=== PATIENT | female | born 1965 | race African-American/Black ===

== ENCOUNTER 2018-09-28 12:17 | Inpatient (IN) | payer BC ==
[~2018-09-28] VITALS: Ht 152.4 cm; Wt 67.1 kg
[2018-09-28 12:33] VITALS: BP_SYST 143
--- NOTE | 2018-09-28 12:38 | NUR ---
Patient to ER bed 08 to gown for evaluation. Side rails up.
--- NOTE | 2018-09-28 12:41 | NUR ---
Pt AAOx4 ambulated into ED c/o dizziness, headache, nausea, chills, generalized weakness x 2 days. Pt states she had fever of 101.4 at home and took tylenol. Afebrile in ED. Pt also reports constipation x 5 days r/t IBS. +nausea, +diaphoretic. Denies vomting/diarrhea. No other injuries/complaints per pt/noted. Will continue to monitor.
--- NOTE | 2018-09-28 12:43 | NUR ---
EMILIE Lisa at bedside examining patient.
[2018-09-28] MEDS ORDERED: ONDANSETRON HCL 4 MG/2 ML VIAL IVP ONE ×2 (12:45→14:45)
[2018-09-28] MEDS ORDERED: NACL 0.9% 1,000 ML IV ONE ×3 (12:45→16:00)
[2018-09-28] MEDS ORDERED: KETOROLAC TROMETHAMINE 30 MG VIAL IVP ONE (12:45)
[2018-09-28 13:11] LABS: HEMATOCRIT 32.3 % (36-48); HEMOGLOBIN 9.7 g/dL (12.0-16.0); MEAN CORPUSCULAR HEMOGLOBIN 20 pg (27-31); MEAN CORPUSCULAR HGB CONC 30 % (32-36); MEAN CORPUSCULAR VOLUME 68 fL (79.0-98.0); PLATELET COUNT (AUTO) 449 K/uL (130-430); RED BLOOD CELL COUNT(AUTO) 4.74 MIL/uL (4.2-6.2); WHITE BLOOD COUNT (AUTO) 24.7 K/uL (4.8-10.8)
[2018-09-28 13:16] LABS: BILIRUBIN,URINE NEGATIVE (NEGATIVE); BLOOD, URINE NEGATIVE (NEGATIVE); CLARITY/URINE CLEAR (CLEAR); COLOR,URINE YELLOW (YELLOW); GLUCOSE,URINE NEGATIVE (NEGATIVE); KETONES,URINE NEGATIVE (NEGATIVE); LEUKOCYTE ESTERASE ,URINE NEGATIVE (NEGATIVE); NITRITE, URINE NEGATIVE (NEGATIVE); PH,URINE 8.5 (5.0-8.0); PROTEIN URINE NEGATIVE (NEGATIVE); UROBILINOGEN,URINE 0.2 (0.2-1.0)
[2018-09-28 13:22] LABS: CALCIUM 9.3 mg/dL (8.4-11.0); CREATININE 0.88 mg/dL (0.55-1.30); POTASSIUM 3.5 mmol/L (3.5-5.1)
[2018-09-28 13:27] LABS: ALBUMIN 3.9 g/dL (3.4-4.8); TOTAL BILIRUBIN 0.2 mg/dL (0.0-1.0)
[2018-09-28] MEDS ORDERED: PIPERACILLIN/TAZO 3.375 GM in NS 50 ML IV ONE (13:30)
[2018-09-28 13:43] LABS: BAND % (MANUAL) 5 % (0-6); LYMPHOCYTES % (MANUAL) 4 % (20-46)
[2018-09-28 13:44] LABS: BASOPHILS % (MANUAL) 0 % (0-2); EOSINOPHILS % (MANUAL) 0 % (0-7); MONOCYTES % (MANUAL) 3 % (0-11)
[2018-09-28] MEDS ORDERED: PIPERACILLIN/TAZOBACTAM 3.375 GM/VIAL (ZOSYN) IV ONE (13:57)
--- NOTE | 2018-09-28 14:09 | NUR ---
TAKEN TO RADIOLOGY VIA STRETCHER
[2018-09-28] MEDS ORDERED: MORPHINE 4 MG/ML INJ. SYRINGE IVP ONE (14:30)
--- NOTE | 2018-09-28 14:30 | NUR ---
Pt reports continuing headache. Dr. Lisa to order morphine
--- NOTE | 2018-09-28 14:33 | NUR ---
Pt requested Zofran prior to morphine administration. Dr. Lisa notified. Orders to be received.
--- NOTE | 2018-09-28 14:39 | NUR ---
Medication administered. Pt tolerated well. No adverse reactions noted.
--- NOTE | 2018-09-28 14:51 | NUR ---
Lab at bedside
--- NOTE | 2018-09-28 15:10 | NUR ---
Son of patient Poncho called for update, asked to have phone number on chart
--- NOTE | 2018-09-28 15:30 | NUR ---
Patient C/o chest uncomfortable right lower chest pain, repositioned patient and pain subsided. patientstates she feels warm & nausea. Blankets off and made Dr. Lisa aware.
[2018-09-28] MEDS ORDERED: METOCLOPRAMIDE HCL 10 MG/2 ML VIAL IVP ONE (15:45)
--- NOTE | 2018-09-28 15:56 | NUR ---
Requested room number from [facility]. Per [facility], they will call when bed is available.
--- NOTE | 2018-09-28 15:58 | NUR ---
Pt reports she takes no prescription home meds
--- NOTE | 2018-09-28 15:58 | NUR ---
Pt states she is full code
--- NOTE | 2018-09-28 16:00 | NUR ---
patient assisted to restroom via wheelchair
--- NOTE | 2018-09-28 16:15 | NUR ---
Patient will be admitted to care of Dr. Chaney. Admitted to Med surg unit. Will go to room 125B. Belongings list completed. Summary report printed. Report given at bedside to Han CHRISTOPHER.
--- NOTE | 2018-09-28 16:15 | NUR ---
Patient will be admitted to care of Dr. Chaney. Admitted to med surg unit. Will go to [id number] . Belongings list completed. Summary report printed. Report given at bedside to Han CHRISTOPHER.
--- NOTE | 2018-09-28 16:30 | NUR ---
ADMISSION NOTE Received patient from ER via shantelrstu. Patient admitted with diagnosis of Chest Pain and Sepsis of unknown etiology. Patient is awake, alert, oriented X 4. Patient oriented to hospital room, call light, toileting, pain management and safety-teach back done. Report received from endorsing nurse Kaelyn RN via beside. Bed is placed at lowest position, safety checks completed, and call light within reach.
[2018-09-28 17:15] VITALS: BP_SYST 106
[2018-09-28] MEDS ORDERED: METOCLOPRAMIDE HCL 10 MG/2 ML VIAL IVP PRN (18:00)
[2018-09-28] MEDS ORDERED: MORPHINE 4 MG/ML INJ. SYRINGE IVP PRN (18:00)
[2018-09-28] MEDS ORDERED: MORPHINE 2 MG/ML INJ. SYRINGE IVP PRN (18:00)
[2018-09-28] MEDS ORDERED: ONDANSETRON HCL 4 MG/2 ML VIAL IVP PRN (18:00)
[2018-09-28] MEDS: NACL 0.9% 1,000 ML IV SCH (18:35)
[2018-09-28] MEDS: PIPERACILLIN/TAZO 3.375/DEX-IS 50 ML IV SCH (18:35)
--- NOTE | 2018-09-28 19:05 | NUR ---
Closing Note Patient is AOx4 in bed with son at bedside. They are both speaking to each other. Patient is not presenting any signs of acute distress. Safety precautions in place and bed is placed at the lowest position. Provided plan of care via sbar to endorsing nurse at bedside.
--- NOTE | 2018-09-28 19:35 | NUR ---
ROUNDS PATIENT RESTING COMFORTABLY IN BED, VITALS STABLE, DENIES ANY PAIN AND DISCOMFORT AT THIS TIME. ASSESSMENT DONE AND DOCUMENTED. SEE FLOWSHEET. NEEDS ATTENDED TO. SAFETY AND FALL PRECAUTION MEASURES IN PLACED. BED IN LOW AND LOCKED POSITION. CALL LIGHT PLACED WITHIN REACH.
[2018-09-28 20:00] VITALS: BP_SYST 149
[2018-09-28] MEDS: ACETAMINOPHEN 325 MG TABLET PO PRN (20:37)
--- NOTE | 2018-09-28 21:13 | NUR ---
MEDICATION DUE MEDICATIONS GIVEN SCHEDULED, TOLERATED WELL. WILL CONTINUE TO MONITOR.
--- NOTE | 2018-09-29 00:13 | NUR ---
PATIENT RESTING: Patient resting quietly. No acute distress noted. Vital signs within normal range.
[2018-09-29] MEDS: PIPERACILLIN/TAZO 3.375/DEX-IS 50 ML IV SCH ×4 (00:24→18:19)
[2018-09-29] MEDS: ACETAMINOPHEN 325 MG TABLET PO PRN ×4 (02:06→20:33)
--- NOTE | 2018-09-29 02:15 | NUR ---
ROUNDS PATIENT ASLEEP, VITALS STABLE, NO PAIN AND DISCOMFORT NOTED. WILL CONTINUE TO MONITOR.
--- NOTE | 2018-09-29 04:12 | NUR ---
PATIENT RESTING: Patient resting quietly. No acute distress noted. Vital signs within normal range.
[2018-09-29 05:42] LABS: ALBUMIN 2.8 g/dL (3.4-4.8); CALCIUM 8.4 mg/dL (8.4-11.0); CREATININE 0.95 mg/dL (0.55-1.30); POTASSIUM 3.5 mmol/L (3.5-5.1); TOTAL BILIRUBIN 0.4 mg/dL (0.0-1.0)
[2018-09-29] MEDS: NACL 0.9% 1,000 ML IV SCH ×2 (05:44→18:14)
[2018-09-29 06:05] VITALS: BP_SYST 94
[2018-09-29 06:10] LABS: BASOPHILS # (AUTO) 0.1 K/uL (0.0-0.2); BASOPHILS % (AUTO) 0.4 % (0.0-2.0); HEMATOCRIT 25.6 % (36-48); HEMOGLOBIN 7.7 g/dL (12.0-16.0); LYMPHOCYTES # (AUTO) 0.7 K/uL (1.0-5.5); LYMPHOCYTES % (AUTO) 2.8 % (20.5-51.5); MEAN CORPUSCULAR HEMOGLOBIN 21 pg (27-31); MEAN CORPUSCULAR HGB CONC 30 % (32-36); MEAN CORPUSCULAR VOLUME 69 fL (79.0-98.0); MONOCYTES # (AUTO) 0.5 K/uL (0.0-1.0); MONOCYTES % (AUTO) 2.2 % (1.7-9.3); NEUTROPHILS # (AUTO) 21.9 K/uL (1.8-7.7); PLATELET COUNT (AUTO) 343 K/uL (130-430); RED BLOOD CELL COUNT(AUTO) 3.73 MIL/uL (4.2-6.2); RED CELL DISTRIBUTION WIDTH 17.4 % (9.0-15.0); WHITE BLOOD COUNT (AUTO) 23.2 K/uL (4.8-10.8)
--- NOTE | 2018-09-29 06:32 | NUR ---
CLOSING NOTES PATIENT AWAKE, VITALS STABLE, DENIES ANY PAIN AND DISCOMFORT AT THIS TIME. ALL NEEDS ATTENDED TO. SAFETY MEASURES MAINTAINED. CALL LIGHT PLACED WITHIN REACH.
[2018-09-29 07:08] LABS: NEUTROPHILS % (AUTO) 94.6 % (40.0-70.0)
[2018-09-29 08:00] VITALS: BP_SYST 108
--- NOTE | 2018-09-29 08:00 | NUR ---
initial notes rec patient awake laert with hob elevated . ivf infusing well on the l ac. no infiltration noted. resp easy and unlabored. no sob noted.call light within reached and knows when to call for assistance. bed to the lowest position.
--- NOTE | 2018-09-29 10:30 | NUR ---
rounds seen by dr santos and requested for dr helton to see patient. awaiting for him grant see patient.
--- NOTE | 2018-09-29 10:45 | NUR ---
CONSULTATION PAGED/CALLED Reason for Consultation: SEPSIS Person Who was Notified: SPOKE WITH DANIA FROM OFFICE. Consulting Physician: Entertainment Centre Manager Specialty: ID Ordering Physician:
[2018-09-29 11:43] VITALS: BP_SYST 96
--- NOTE | 2018-09-29 13:00 | NUR ---
rounds iv infiltrated and restarted by aurora rn. due meds given.
[2018-09-29 15:45] VITALS: BP_SYST 94
--- NOTE | 2018-09-29 16:00 | NUR ---
rounds family came to visit patient. no sob noted.
--- NOTE | 2018-09-29 17:00 | NUR ---
rounds seen by dr vazquez at bedside . pt took a shower and patti well. no sob noted.
--- NOTE | 2018-09-29 18:45 | NUR ---
closing notes restin comfortably. no sob noted. bed to the lowest position and side rails up and locked. call light within reached.
--- NOTE | 2018-09-29 19:20 | NUR ---
Opening notes Pt alert, awake, resting in bed, no s/s distress noted. Bed low, locked, siderails x2 elevated. Call light/items within easy reach. To monitor.
[2018-09-29 20:00] VITALS: BP_SYST 111
--- NOTE | 2018-09-29 22:05 | NUR ---
Rounds Pt asleep, no s/s distress noted. Call light within reach. Safety measures in place. To monitor.
[2018-09-30] MEDS: PIPERACILLIN/TAZO 3.375/DEX-IS 50 ML IV SCH ×5 (00:20→23:15)
--- NOTE | 2018-09-30 00:35 | NUR ---
Rounds Pt asleep, easily arousable. No s/s distress noted. VSS. Call light within reach. To monitor.
--- NOTE | 2018-09-30 02:02 | NUR ---
Rounds Pt alert, awake, gown changed per pt request. Pt states she woke up in a sweat. IVF infusing at ordered rate, IV site patent. To monitor.
[2018-09-30] MEDS: NACL 0.9% 1,000 ML IV SCH ×3 (04:57→21:22)
[2018-09-30 05:32] VITALS: BP_SYST 108
--- NOTE | 2018-09-30 06:30 | NUR ---
Closing notes Pt asleep, easily arousable. Pt c/o headache medicated with Tylenol 650mg PO. IV antibiotic administered as ordered L. hand 22G no s/s infiltration. Call light within reach. Bed low, locked, siderails x2 elevated. To endorse to AM nurse.
[2018-09-30] MEDS: ACETAMINOPHEN 325 MG TABLET PO PRN (06:33)
[2018-09-30 06:35] LABS: BASOPHILS # (AUTO) 0.1 K/uL (0.0-0.2); BASOPHILS % (AUTO) 0.9 % (0.0-2.0); EOSINOPHILS # (AUTO) 0.1 K/uL (0.0-0.4); EOSINOPHILS % (AUTO) 0.5 % (0.0-4.0); HEMATOCRIT 25.9 % (36-48); HEMOGLOBIN 7.9 g/dL (12.0-16.0); LYMPHOCYTES # (AUTO) 1.5 K/uL (1.0-5.5); LYMPHOCYTES % (AUTO) 14.7 % (20.5-51.5); MEAN CORPUSCULAR HEMOGLOBIN 21 pg (27-31); MEAN CORPUSCULAR HGB CONC 31 % (32-36); MEAN CORPUSCULAR VOLUME 68 fL (79.0-98.0); MONOCYTES # (AUTO) 0.8 K/uL (0.0-1.0); MONOCYTES % (AUTO) 7.8 % (1.7-9.3); NEUTROPHILS # (AUTO) 7.6 K/uL (1.8-7.7); NEUTROPHILS % (AUTO) 76.1 % (40.0-70.0); PLATELET COUNT (AUTO) 310 K/uL (130-430); RED CELL DISTRIBUTION WIDTH 17.7 % (9.0-15.0); WHITE BLOOD COUNT (AUTO) 9.9 K/uL (4.8-10.8)
[2018-09-30 06:47] LABS: ALBUMIN 2.8 g/dL (3.4-4.8); CREATININE 0.8 mg/dL (0.55-1.30); POTASSIUM 3.4 mmol/L (3.5-5.1); TOTAL BILIRUBIN 0.3 mg/dL (0.0-1.0)
[2018-09-30 07:10] LABS: CALCIUM 8.5 mg/dL (8.4-11.0)
[2018-09-30 08:00] VITALS: BP_SYST 120
[2018-09-30] MEDS ORDERED: POTASSIUM CHLORIDE 20 MEQ TAB.PRT.SR PO ONE (08:00)
--- NOTE | 2018-09-30 08:00 | NUR ---
initial notes rec patient awake alert with hob elevated. ivf infusing well on the l hand. no infiltration noted. bed to the lowest position and side rails up and locked. call light within reached and knows when to call for assistance. seen by dr warren pisano at bedside and with orders. will continue to monitor patient.
[2018-09-30 08:12] LABS: TOTAL IRON BIND. CAPACITY 306 ug/dL (250-450)
--- NOTE | 2018-09-30 08:16 | NUR ---
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
[2018-09-30] MEDS: PANTOPRAZOLE SODIUM 40 MG/VIAL (PROTONIX) IVP SCH (09:34)
[2018-09-30] MEDS: traMADol HCL HCL 50 MG TABLET (ULTRAM) PO PRN ×2 (09:35→18:06)
--- NOTE | 2018-09-30 09:36 | NUR ---
CONSULTATION PAGED/CALLED Reason for Consultation: GALLSTONES Person Who was Notified: SPOKE WITH RASHAUN FROM OFFICE Consulting Physician: Pressure Tester Specialty: SURG Ordering Physician:
--- NOTE | 2018-09-30 10:00 | NUR ---
rounds iv infiltrated and will restart by chico. denies nausea and vomiting bt c/o of headache was medicated. uses the commode at bedside.
--- NOTE | 2018-09-30 10:59 | NUR ---
Case mgt: Rec'd call from mg Haro at [facility], requesting updated MD prog notes, discussed plan of care--HIDA and surgical consult w/Dr. Pierce pending--faxed MD notes, labs to [facility] fax#[phone]--CB#[phone]-- RN
--- NOTE | 2018-09-30 12:00 | NUR ---
rounds npo maintained for the hida scan test. no sob noted. call light within reached.
[2018-09-30 12:24] VITALS: BP_SYST 125
--- NOTE | 2018-09-30 14:00 | NUR ---
rounds awaiting for dr vazquez , dr ortiz and dr guallpa to see patient. atoo a shower. ambulatingthe hallway and patti well.
--- NOTE | 2018-09-30 16:00 | NUR ---
rounds dr guallpa called and stated that hida scan was negative. stated to call dr warren pisano for diet. awaiting to call back.
--- NOTE | 2018-09-30 16:01 | NUR ---
Dietitian Recommendations * Consider regular, vegetarian diet w/ Glucerna BID if/when medically appropriate (ONS provides 440 kcal/day, 20 gm protein/day) THERESA TAYLOR Please refer to Nutrition Assessment for details. Addendum: 09/30/18 at [address] Amended: Links added.
[2018-09-30 16:08] VITALS: BP_SYST 123
--- NOTE | 2018-09-30 19:00 | NUR ---
closing notes seen by dr guallpa at bedside. no osb noted. bed to the lowest position and side rails up and locked. call light within reached.
--- NOTE | 2018-09-30 19:15 | NUR ---
OPENING NOTE Bedside report received from dayshift nurse. Patient received lying in bed, watching TV. No s/s of acute distress noted. Breathing even and unlabored. Patient denies any pain at this time. IVF infusing well, IV site patent, no signs of infiltration or infection noted. Call light with patient. Bed is locked and at lowest position. Will continue to monitor.
[2018-09-30 20:00] VITALS: BP_SYST 126
--- NOTE | 2018-09-30 21:00 | NUR ---
ROUNDS Patient in bed, resting, no signs of discomfort noted. Patient denies pain. Chest rise and fall even bilaterally. IVF infusing well. Call light with patient. Will continue to monitor.
--- NOTE | 2018-09-30 23:00 | NUR ---
ESPINOZA mccollum at this time. IV antibiotic infusing well. Patient denies pain. No s/s of acute distress noted. Breathing even and unlabored. Call light with patient. Will continue to monitor.
--- NOTE | 2018-10-01 01:00 | NUR ---
ROUNDS Patient in bed sleeping at this time. No signs of discomfort noted. Chest rise and fall even bilaterally. IVF infusing well. Call light with patient. Will continue to monitor.
[2018-10-01 01:20] VITALS: BP_SYST 109
--- NOTE | 2018-10-01 03:00 | NUR ---
ROUNDS Patient in bed sleeping. No s/s of acute distress noted. Breathing even and unlabored. IVF infusing well. Call light with patient. Will continue to monitor.
--- NOTE | 2018-10-01 05:00 | NUR ---
ROUNDS Patient asleep. No signs of discomfort noted. Chest rise and fall even bilaterally. IVF infusing well. Call light with patient. Will continue to monitor.
[2018-10-01] MEDS: PIPERACILLIN/TAZO 3.375/DEX-IS 50 ML IV SCH (05:41)
[2018-10-01] MEDS: NACL 0.9% 1,000 ML IV SCH (06:00)
[2018-10-01 06:22] LABS: BASOPHILS # (AUTO) 0.1 K/uL (0.0-0.2); BASOPHILS % (AUTO) 1.3 % (0.0-2.0); EOSINOPHILS # (AUTO) 0.1 K/uL (0.0-0.4); EOSINOPHILS % (AUTO) 1.8 % (0.0-4.0); HEMATOCRIT 26.5 % (36-48); HEMOGLOBIN 8.2 g/dL (12.0-16.0); LYMPHOCYTES # (AUTO) 2.5 K/uL (1.0-5.5); LYMPHOCYTES % (AUTO) 35.3 % (20.5-51.5); MEAN CORPUSCULAR HEMOGLOBIN 21 pg (27-31); MEAN CORPUSCULAR HGB CONC 31 % (32-36); MEAN CORPUSCULAR VOLUME 69 fL (79.0-98.0); MONOCYTES # (AUTO) 0.8 K/uL (0.0-1.0); MONOCYTES % (AUTO) 11.1 % (1.7-9.3); NEUTROPHILS # (AUTO) 3.6 K/uL (1.8-7.7); NEUTROPHILS % (AUTO) 50.5 % (40.0-70.0); PLATELET COUNT (AUTO) 316 K/uL (130-430); RED BLOOD CELL COUNT(AUTO) 3.86 MIL/uL (4.2-6.2); RED CELL DISTRIBUTION WIDTH 18.1 % (9.0-15.0); WHITE BLOOD COUNT (AUTO) 7.1 K/uL (4.8-10.8)
--- NOTE | 2018-10-01 06:44 | NUR ---
CLOSING NOTES Patient in bed sleeping at this time. No s/s of acute distress noted. Breathing even and unlabored. IVF infusing well. IV site patent, no signs of infiltration or infection noted. All needs met throughout shift. Fall and safety precautions maintained throughout shift. Will continue to monitor until patient care is endorsed to oncoming dayshift nurse.
[2018-10-01 06:54] LABS: ALBUMIN 2.9 g/dL (3.4-4.8); CALCIUM 8.5 mg/dL (8.4-11.0); CREATININE 0.69 mg/dL (0.55-1.30); POTASSIUM 3.4 mmol/L (3.5-5.1); TOTAL BILIRUBIN 0.2 mg/dL (0.0-1.0)
--- NOTE | 2018-10-01 08:15 | NUR ---
INITIAL ROUNDS Received pt AAOx4, no s/s resp distress, c/o pain 07/24 to headache-will check on pt's pain medications. Plan of care for the day reviewed with pt-pt verbalized her understanding. IVF infusing well to left hand at ordered rate with no s/s infiltration to site. Pt seen by Dr. Sung-GI and pt pt cleared from GI standpoint per MD. Pain management, disease process, skin and safety discussed-teach back done. Call light within reach.
[2018-10-01 08:21] VITALS: BP_SYST 113
[2018-10-01] MEDS ORDERED: POTASSIUM CHLORIDE 10 MEQ TAB.PRT.SR PO ONE (09:15)
[2018-10-01] MEDS: PANTOPRAZOLE SODIUM 40 MG/VIAL (PROTONIX) IVP SCH (09:24)
[2018-10-01] MEDS: traMADol HCL HCL 50 MG TABLET (ULTRAM) PO PRN (09:28)
--- NOTE | 2018-10-01 09:35 | NUR ---
ROUNDS Pt seen by Dr. Aguilar stated he will discharge pt home. Pt c/o headache, given Ultram as ordered. Call light within reach.
[2018-10-01] MEDS ORDERED: MULT-1089 PO (10:59)
[2018-10-01] MEDS ORDERED: LEVAQUIN PO (11:00)
[2018-10-01] MEDS ORDERED: LACT1CAP57 PO (11:00)
[2018-10-01] MEDS ORDERED: PRO40 PO (11:01)
[2018-10-01 11:35] VITALS: BP_SYST 119
[2018-10-01 12:05] VITALS: BP_SYST 119
--- NOTE | 2018-10-01 12:50 | NUR ---
PATIENT DISCHARGED Patient given medication reconciliation form and D/C instructions. Exit Care on Cholelithiasis, Levaquin, Protonix and Low Fat diet explained & provided. Patient verbalized her understanding. MD discussed with patient the results and treatment provided. Ambulatory with steady gait for discharge to home. Patient in stable condition, ID band removed. IV catheter removed, intact and dressing applied, no active bleeding. Rx of Levaquin, Protonix, Culturelle & Multivitaminsexplained & given. Patient educated on pain management. All belongings sent with patient. Patient left floor via wheelchair to private vehicle in no distress.
== END 2018-10-01 12:50 | disposition home or self-care (01) | DRG 872 ==
LOC: SED 12:17 → SMU 15:54
PROVIDERS: ADMIT Internal Medicine Hospice and Palliative Medicine; ATTEND Internal Medicine Hospice and Palliative Medicine
DX: A41.9 Sepsis, unspecified organism (principal); D64.9 Anemia, unspecified; K21.9 Gastro-esophageal reflux disease without esophagitis; K44.9 Diaphragmatic hernia without obstruction or gangrene; K80.20 Calculus of gallbladder without cholecystitis without obstruction; N83.209 Unspecified ovarian cyst, unspecified side; G89.29 Other chronic pain; E66.9 Obesity, unspecified; Z90.710 Acquired absence of both cervix and uterus; Z88.1 Allergy status to other antibiotic agents; Z91.011 Allergy to milk products; Z79.899 Other long term (current) drug therapy; Z68.28 Body mass index [BMI] 28.0-28.9, adult
CPT/HCPCS: 36415; 71045; 76856-TC; 78226; 80053; 81003; 83540-TC; 83550-TC; 83605; 83690-TC; 84484; 85007; 85025; 85027; 85651-TC; 86710; 87040-TC; 87086; 93005; 96361; 96365; 96375; 99291; A9537; C9113; J1885; J2270; J2405; J2543; J2765; J7030

== ENCOUNTER 2018-12-09 02:58 | Emergency (ER) | payer BC ==
[~2018-12-09] VITALS: Ht 152.4 cm; Wt 67.1 kg
[~2018-12-09 02:58] MED LIST: LACT1CAP57 PO; LEVAQUIN PO; MULT-1089 PO; PRO40 PO
--- NOTE | 2018-12-09 03:00 | NUR ---
Patient to ER bed 5 to gown for evaluation. Side rails up.
[2018-12-09 03:10] VITALS: BP_SYST 127
--- NOTE | 2018-12-09 03:10 | NUR ---
ER at bedside examining patient.
--- NOTE | 2018-12-09 03:15 | NUR ---
PT c/o of generalized weakness and ABD pain which started at 1700 yesterday. Reported that her last BM was normal and it was yesterday. Reports that she was recently hospitalized for similiar symptoms in September. She was referred to have a endoscopy, however, she is currently still waiting for the refferal. Reports some nausea. Denies vomiting or diarrhea. No other complaints/injuries noted. Will cont. to monitor.
[2018-12-09] MEDS ORDERED: MORPHINE 4 MG/ML INJ. SYRINGE IVP ONE (03:20)
[2018-12-09] MEDS ORDERED: NACL 0.9% 1,000 ML IV ONE (03:30)
[2018-12-09] MEDS ORDERED: ASPIRIN 325 MG TABLET PO ONE (03:30)
--- NOTE | 2018-12-09 04:00 | NUR ---
PT resting comfortably in bed, no signs of acute distress. Will cont. to monitor.
[2018-12-09 04:28] LABS: BASOPHILS # (AUTO) 0.1 K/uL (0.0-0.2); BASOPHILS % (AUTO) 0.4 % (0.0-2.0); EOSINOPHILS % (AUTO) 0.1 % (0.0-4.0); HEMATOCRIT 29.6 % (36-48); LYMPHOCYTES # (AUTO) 0.8 K/uL (1.0-5.5); LYMPHOCYTES % (AUTO) 2.8 % (20.5-51.5); MEAN CORPUSCULAR HEMOGLOBIN 20 pg (27-31); MEAN CORPUSCULAR HGB CONC 30 % (32-36); MEAN CORPUSCULAR VOLUME 67 fL (79.0-98.0); MONOCYTES # (AUTO) 0.6 K/uL (0.0-1.0); MONOCYTES % (AUTO) 2.3 % (1.7-9.3); NEUTROPHILS # (AUTO) 25.9 K/uL (1.8-7.7); NEUTROPHILS % (AUTO) 94.4 % (40.0-70.0); PLATELET COUNT (AUTO) 383 K/uL (130-430); RED BLOOD CELL COUNT(AUTO) 4.46 MIL/uL (4.2-6.2); RED CELL DISTRIBUTION WIDTH 18.4 % (9.0-15.0); WHITE BLOOD COUNT (AUTO) 27.4 K/uL (4.8-10.8)
[2018-12-09] MEDS ORDERED: KETOROLAC TROMETHAMINE 30 MG VIAL IVP ONE ×2 (04:30→05:00)
[2018-12-09] MEDS ORDERED: KETOROLAC TROMETHAMINE 60 MG/2 ML VIAL IM ONE (04:30)
[2018-12-09 04:45] LABS: CALCIUM 8.8 mg/dL (8.4-11.0); CREATININE 0.93 mg/dL (0.55-1.30); POTASSIUM 3.5 mmol/L (3.5-5.1)
[2018-12-09] MEDS ORDERED: KETOROLAC TROMETHAMINE 30 MG VIAL ONE (04:46)
[2018-12-09 04:52] LABS: ALBUMIN 3.8 g/dL (3.4-4.8); TOTAL BILIRUBIN 0.5 mg/dL (0.0-1.0)
[2018-12-09] MEDS ORDERED: cefTRIAXone 1 GM IVPB PREMIX 50 ML IV ONE (05:00)
--- NOTE | 2018-12-09 05:00 | NUR ---
PT resting comfortably in bed, no signs of acute distress. Will cont. to monitor.
[2018-12-09 05:05] LABS: BILIRUBIN,URINE NEGATIVE (NEGATIVE); BLOOD, URINE TRACE (NEGATIVE); CLARITY/URINE CLEAR (CLEAR); COLOR,URINE YELLOW (YELLOW); GLUCOSE,URINE NEGATIVE (NEGATIVE); KETONES,URINE NEGATIVE (NEGATIVE); LEUKOCYTE ESTERASE ,URINE NEGATIVE (NEGATIVE); NITRITE, URINE NEGATIVE (NEGATIVE); PROTEIN URINE NEGATIVE (NEGATIVE); UROBILINOGEN,URINE 0.2 (0.2-1.0)
[2018-12-09 05:07] LABS: BACTERIA,URINE FEW /HPF (None Seen); WBC,URINE 0-3 /HPF (0-3)
--- NOTE | 2018-12-09 06:42 | NUR ---
ER at bedside speaking to pt about results.
[2018-12-09 06:52] VITALS: BP_SYST 127
--- NOTE | 2018-12-09 06:52 | NUR ---
Patient given written and verbal discharge instructions and verbalizes understanding. ER MD Dr. Oquendo discussed with patient the results and treatment provided. Patient in stable condition. ID arm band removed. IV catheter removed intact and dressing applied, no active bleeding. Patient educated on pain management and to follow up with PMD. Pain Scale 2/10, pt ambulated with steady gait, no signs of acute distress. Opportunity for questions provided and answered. Medication side effect fact sheet provided.
== END 2018-12-09 06:52 | disposition home or self-care (01) ==
LOC: SED 02:58
DX: R07.9 Chest pain, unspecified (principal); R10.84 Generalized abdominal pain; R53.83 Other fatigue; Z88.8 Allergy status to other drugs, medicaments and biological substances; Z79.899 Other long term (current) drug therapy
CPT/HCPCS: 36415; 71045; 80053; 81000; 83605; 83880; 84484; 85025; 85379; 87040; 96365; 96375; 99284; J0696; J1885

== ENCOUNTER 2018-12-13 21:12 | Emergency (ER) | payer BC ==
[~2018-12-13] VITALS: Ht 152.4 cm; Wt 68.9 kg
[2018-12-13 21:30] VITALS: BP_SYST 130
--- NOTE | 2018-12-13 21:35 | NUR ---
Patient to ER bed 04 to gown for evaluation. Side rails up. Report given to ASHWIN Sawyer.
--- NOTE | 2018-12-13 22:00 | NUR ---
Dr. Vickers bedside for Pt eval
[2018-12-13] MEDS ORDERED: NACL 0.9% 1,000 ML IV ONE (22:04)
--- NOTE | 2018-12-13 22:05 | NUR ---
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 No other complaints and or injuries noted VSS no s/s of acute distress. Resting on gurney rails up
[2018-12-13 22:29] LABS: BILIRUBIN,URINE NEGATIVE (NEGATIVE); BLOOD, URINE NEGATIVE (NEGATIVE); CLARITY/URINE CLEAR (CLEAR); COLOR,URINE YELLOW (YELLOW); GLUCOSE,URINE NEGATIVE (NEGATIVE); KETONES,URINE NEGATIVE (NEGATIVE); LEUKOCYTE ESTERASE ,URINE NEGATIVE (NEGATIVE); NITRITE, URINE NEGATIVE (NEGATIVE); PH,URINE 5.5 (5.0-8.0); PROTEIN URINE NEGATIVE (NEGATIVE); UROBILINOGEN,URINE 0.2 (0.2-1.0)
[2018-12-13 22:58] LABS: BASOPHILS # (AUTO) 0.1 K/uL (0.0-0.2); BASOPHILS % (AUTO) 1.4 % (0.0-2.0); EOSINOPHILS # (AUTO) 0.1 K/uL (0.0-0.4); EOSINOPHILS % (AUTO) 1.4 % (0.0-4.0); HEMATOCRIT 28.3 % (36-48); HEMOGLOBIN 8.8 g/dL (12.0-16.0); LYMPHOCYTES # (AUTO) 3.1 K/uL (1.0-5.5); LYMPHOCYTES % (AUTO) 32.5 % (20.5-51.5); MEAN CORPUSCULAR HEMOGLOBIN 21 pg (27-31); MEAN CORPUSCULAR HGB CONC 31 % (32-36); MEAN CORPUSCULAR VOLUME 67 fL (79.0-98.0); MONOCYTES # (AUTO) 0.5 K/uL (0.0-1.0); NEUTROPHILS # (AUTO) 5.7 K/uL (1.8-7.7); NEUTROPHILS % (AUTO) 59.7 % (40.0-70.0); PLATELET COUNT (AUTO) 386 K/uL (130-430); RED BLOOD CELL COUNT(AUTO) 4.26 MIL/uL (4.2-6.2); RED CELL DISTRIBUTION WIDTH 17.9 % (9.0-15.0); WHITE BLOOD COUNT (AUTO) 9.6 K/uL (4.8-10.8)
[2018-12-13] MEDS ORDERED: KETOROLAC TROMETHAMINE 15 MG VIAL IVP ONE (23:00)
[2018-12-13 23:35] LABS: CREATININE 0.75 mg/dL (0.55-1.30); POTASSIUM 3.6 mmol/L (3.5-5.1)
[2018-12-13 23:36] LABS: PROTHROMBIN TIME 9.7 SECS (9.5-12.5)
[2018-12-13 23:40] LABS: ALBUMIN 3.3 g/dL (3.4-4.8); TOTAL BILIRUBIN 0.2 mg/dL (0.0-1.0)
--- NOTE | 2018-12-13 23:50 | NUR ---
No adverse reactions noted after medication administration. Will continue to monitor.
[2018-12-14] MEDS ORDERED: LIDOCAINE VISCOUS 2%, 15 ML UDC MM ONE (00:15)
[2018-12-14 00:36] VITALS: BP_SYST 128
--- NOTE | 2018-12-14 00:36 | NUR ---
Patient given written and verbal discharge instructions and verbalizes understanding. ER MD discussed with patient the results and treatment provided. Patient in stable condition. ID arm band removed. IV catheter removed intact and dressing applied, no active bleeding. No Rx given. Patient educated on pain management and to follow up with PMD. Pain Scale 2/10 tolerable to patient. Opportunity for questions provided and answered.
== END 2018-12-14 00:36 | disposition home or self-care (01) ==
LOC: SED 21:12
DX: R07.89 Other chest pain (principal); K21.9 Gastro-esophageal reflux disease without esophagitis; Z88.1 Allergy status to other antibiotic agents; Z79.899 Other long term (current) drug therapy
CPT/HCPCS: 36415; 71045; 80053; 81003; 83605; 84484; 85025; 85610; 85730; 87040; 87086; 93005; 96374; 99284; J1885; J2001; J7030; 99283

== ENCOUNTER 2019-01-11 17:36 | Inpatient (IN) | payer BC, MEDICAID ==
[~2019-01-11] VITALS: Ht 154.9 cm; Wt 71.2 kg
[2019-01-11 17:36] VITALS: BP_SYST 117
[2019-01-11] MEDS ORDERED: NACL 0.9% 1,000 ML IV ONE ×2 (17:45→18:45)
[2019-01-11] MEDS ORDERED: ACETAMINOPHEN 500 MG TABLET PO ONE (17:45)
[2019-01-11] MEDS ORDERED: ALBU8.5H8 INH (17:46)
[2019-01-11 18:14] LABS: HEMATOCRIT 26.9 % (36-48); HEMOGLOBIN 8.4 g/dL (12.0-16.0); MEAN CORPUSCULAR HEMOGLOBIN 21 pg (27-31); MEAN CORPUSCULAR HGB CONC 31 % (32-36); MEAN CORPUSCULAR VOLUME 66 fL (79.0-98.0); PLATELET COUNT (AUTO) 331 K/uL (130-430); RED BLOOD CELL COUNT(AUTO) 4.07 MIL/uL (4.2-6.2); RED CELL DISTRIBUTION WIDTH 18.3 % (9.0-15.0); WHITE BLOOD COUNT (AUTO) 22.8 K/uL (4.8-10.8)
[2019-01-11 18:20] LABS: CALCIUM 8.7 mg/dL (8.4-11.0); CREATININE 0.9 mg/dL (0.55-1.30); POTASSIUM 3.3 mmol/L (3.5-5.1)
[2019-01-11 18:27] LABS: ALBUMIN 3.9 g/dL (3.4-4.8); TOTAL BILIRUBIN 0.2 mg/dL (0.0-1.0)
[2019-01-11] MEDS ORDERED: KETOROLAC TROMETHAMINE 30 MG VIAL IVP ONE (18:45)
[2019-01-11 18:48] LABS: LYMPHOCYTES % (MANUAL) 11 % (20-46)
[2019-01-11 18:49] LABS: BASOPHILS % (MANUAL) 0 % (0-2); EOSINOPHILS % (MANUAL) 0 % (0-7); MONOCYTES % (MANUAL) 2 % (0-11)
[2019-01-11 20:54] VITALS: BP_SYST 113
[2019-01-11] MEDS: NACL 0.9% 1,000 ML IV SCH (23:42)
[2019-01-11] MEDS ORDERED: HYDROcodone/ACETAMIN 5-325 MG TAB (NORCO/ VICODIN) PO PRN (23:45)
[2019-01-11] MEDS ORDERED: HYDROcodone/ACETAMIN 10-325 MG TAB PO PRN (23:45)
[2019-01-11] MEDS ORDERED: ONDANSETRON HCL 4 MG/2 ML VIAL IVP PRN (23:45)
[2019-01-11] MEDS ORDERED: ALBUTEROL SULFATE 0.083% 2.5 MG/3 ML VIAL.NEB INH PRN (23:45)
[2019-01-11] MEDS ORDERED: LORazepam 2 MG/ML VIAL IVP PRN (23:45)
[2019-01-12] VITALS (7 sets, daily range): BP systolic 98–129
[2019-01-12] MEDS ORDERED: cefTRIAXone 1 GM IVPB PREMIX 50 ML IV SCH ×2 (01:00→07:23)
[2019-01-12] MEDS: KETOROLAC TROMETHAMINE 30 MG VIAL IVP PRN ×2 (01:37→10:01)
[2019-01-12] MEDS ORDERED: cefTRIAXone 1 GM IVPB PREMIX 50 ML IV ONE (02:16)
[2019-01-12 07:40] LABS: BASOPHILS % (AUTO) 0.3 % (0.0-2.0); HEMATOCRIT 23.7 % (36-48); HEMOGLOBIN 7.3 g/dL (12.0-16.0); LYMPHOCYTES # (AUTO) 1.5 K/uL (1.0-5.5); LYMPHOCYTES % (AUTO) 11.3 % (20.5-51.5); MEAN CORPUSCULAR HEMOGLOBIN 21 pg (27-31); MEAN CORPUSCULAR HGB CONC 31 % (32-36); MEAN CORPUSCULAR VOLUME 68 fL (79.0-98.0); MONOCYTES % (AUTO) 7.3 % (1.7-9.3); NEUTROPHILS # (AUTO) 10.8 K/uL (1.8-7.7); PLATELET COUNT (AUTO) 264 K/uL (130-430); RED BLOOD CELL COUNT(AUTO) 3.51 MIL/uL (4.2-6.2); RED CELL DISTRIBUTION WIDTH 18.2 % (9.0-15.0); WHITE BLOOD COUNT (AUTO) 13.4 K/uL (4.8-10.8)
[2019-01-12 07:47] LABS: NEUTROPHILS % (AUTO) 81.1 % (40.0-70.0)
[2019-01-12 08:14] LABS: CHOLESTEROL 157 mg/dL (<200); HDL CHOLESTEROL 75 mg/dL (>55); LDL CHOLESTEROL 73 mg/dL (<100); TOTAL IRON BIND. CAPACITY 349 ug/dL (250-450); TRIGLYCERIDES 22 mg/dL (30-150)
[2019-01-12 08:25] LABS: ALANINE AMINOTRANSFERASE 20 U/L (12-78); ANION GAP 7 (5-15); ASPARTATE AMINOTRANSFERASE 15 U/L (10-37); CALCIUM 8.1 mg/dL (8.4-11.0); CHLORIDE 109 mmol/L (98-107); CREATININE 0.72 mg/dL (0.55-1.30); GLUCOSE 81 mg/dL (70-99); POTASSIUM 3.5 mmol/L (3.5-5.1); SODIUM SERUM 140 mmol/L (136-145); THYROID STIMULATING HORMONE 1.04 uIu/mL (0.36-3.74); TOTAL BILIRUBIN 0.2 mg/dL (0.0-1.0); UREA NITROGEN, BLOOD 7 mg/dL (8-21)
[2019-01-12 08:31] LABS: GFR AFRICAN AMERICAN 109 mL/min (>90)
[2019-01-12] MEDS: NACL 0.9% 1,000 ML IV SCH ×2 (09:42→19:42)
[2019-01-12] MEDS ORDERED: ACETAMINOPHEN 325 MG TABLET PO PRN (10:30)
[2019-01-12] MEDS: SOD FERRIC GLUC COMPLEX/SUC 125 MG in NS 100 ML IV SCH (11:00)
[2019-01-12] MEDS: LEVOFLOXACIN 500 MG/D5W 100 ML IV SCH (17:42)
[2019-01-12] MEDS ORDERED: DIPHENHYDRAMINE INJ 50 MG/ML VIAL IVP ONE (18:15)
[2019-01-12] MEDS: PANTOPRAZOLE SODIUM 40 MG/VIAL (PROTONIX) IVP SCH (20:26)
[2019-01-12] MEDS: ACETAMINOPHEN 325 MG TABLET PO PRN (20:34)
[2019-01-13] VITALS (8 sets, daily range): BP systolic 109–118
[2019-01-13] MEDS: NACL 0.9% 1,000 ML IV SCH (00:02)
[2019-01-13] MEDS: KETOROLAC TROMETHAMINE 15 MG VIAL IVP PRN ×2 (00:03→11:59)
[2019-01-13] MEDS ORDERED: DIPHENHYDRAMINE INJ 50 MG/ML VIAL ONE (06:06)
[2019-01-13 06:23] LABS: BASOPHILS % (AUTO) 0.5 % (0.0-2.0); EOSINOPHILS # (AUTO) 0.2 K/uL (0.0-0.4); EOSINOPHILS % (AUTO) 2.7 % (0.0-4.0); HEMATOCRIT 25.1 % (36-48); HEMOGLOBIN 7.9 g/dL (12.0-16.0); LYMPHOCYTES # (AUTO) 1.9 K/uL (1.0-5.5); LYMPHOCYTES % (AUTO) 21.4 % (20.5-51.5); MEAN CORPUSCULAR HEMOGLOBIN 21 pg (27-31); MEAN CORPUSCULAR HGB CONC 32 % (32-36); MEAN CORPUSCULAR VOLUME 67 fL (79.0-98.0); MONOCYTES # (AUTO) 0.6 K/uL (0.0-1.0); MONOCYTES % (AUTO) 7.4 % (1.7-9.3); NEUTROPHILS # (AUTO) 5.9 K/uL (1.8-7.7); PLATELET COUNT (AUTO) 281 K/uL (130-430); RED BLOOD CELL COUNT(AUTO) 3.78 MIL/uL (4.2-6.2); RED CELL DISTRIBUTION WIDTH 18.4 % (9.0-15.0); WHITE BLOOD COUNT (AUTO) 8.7 K/uL (4.8-10.8)
[2019-01-13 06:44] LABS: CALCIUM 8.1 mg/dL (8.4-11.0); CREATININE 0.73 mg/dL (0.55-1.30); POTASSIUM 3.4 mmol/L (3.5-5.1); TOTAL BILIRUBIN 0.2 mg/dL (0.0-1.0)
[2019-01-13 07:09] LABS: TOTAL IRON BIND. CAPACITY 360 ug/dL (250-450)
[2019-01-13] MEDS ORDERED: MULTIVITAMINS TAB 1 TABLET PO SCH (09:00)
[2019-01-13] MEDS ORDERED: POTASSIUM CHLORIDE 20 MEQ/PKT PACKET PO ONE (09:45)
[2019-01-13] MEDS: PANTOPRAZOLE SODIUM 40 MG/VIAL (PROTONIX) IVP SCH (10:03)
[2019-01-13] MEDS: SOD FERRIC GLUC COMPLEX/SUC 125 MG in NS 100 ML IV SCH (10:38)
[2019-01-13] MEDS ORDERED: FAMO40TA71 PO (10:51)
[2019-01-13] MEDS ORDERED: FER300L PO (10:51)
[2019-01-13] MEDS ORDERED: PEDI1TAB28 PO (10:51)
[2019-01-13] MEDS ORDERED: AZIT250T PO (10:54)
[2019-01-13 12:45] LABS: BASOPHILS # (AUTO) 0.1 K/uL (0.0-0.2); BASOPHILS % (AUTO) 1.2 % (0.0-2.0); EOSINOPHILS # (AUTO) 0.2 K/uL (0.0-0.4); EOSINOPHILS % (AUTO) 2.1 % (0.0-4.0); HEMATOCRIT 32.3 % (36-48); HEMOGLOBIN 10.4 g/dL (12.0-16.0); LYMPHOCYTES # (AUTO) 2.6 K/uL (1.0-5.5); MEAN CORPUSCULAR HEMOGLOBIN 22 pg (27-31); MEAN CORPUSCULAR HGB CONC 32 % (32-36); MEAN CORPUSCULAR VOLUME 69 fL (79.0-98.0); MONOCYTES # (AUTO) 0.7 K/uL (0.0-1.0); MONOCYTES % (AUTO) 6.9 % (1.7-9.3); NEUTROPHILS # (AUTO) 7.1 K/uL (1.8-7.7); NEUTROPHILS % (AUTO) 65.8 % (40.0-70.0); PLATELET COUNT (AUTO) 317 K/uL (130-430); RED BLOOD CELL COUNT(AUTO) 4.66 MIL/uL (4.2-6.2); RED CELL DISTRIBUTION WIDTH 20.1 % (9.0-15.0); WHITE BLOOD COUNT (AUTO) 10.8 K/uL (4.8-10.8)
[2019-01-13] MEDS: ACETAMINOPHEN 325 MG TABLET PO PRN (17:31)
[2019-01-13] MEDS: LEVOFLOXACIN 500 MG/D5W 100 ML IV SCH (18:00)
[2019-01-14 08:19] LABS: FOLATE (FOLIC ACID) 10.7 ng/mL (>3.0)
== END 2019-01-13 20:32 | disposition home or self-care (01) | DRG 871 ==
LOC: SED 17:36 → STU 19:10
PROVIDERS: ADMIT Internal Medicine Hospice and Palliative Medicine; ATTEND Internal Medicine Hospice and Palliative Medicine
PROC: 30233N1 Transfusion of Nonautologous Red Blood Cells into Peripheral Vein, Percutaneous Approach (ICD-10-PCS; principal; 2019-01-13)
DX: A41.9 Sepsis, unspecified organism (principal); J18.9 Pneumonia, unspecified organism; D50.9 Iron deficiency anemia, unspecified; E87.6 Hypokalemia; N32.81 Overactive bladder; K21.9 Gastro-esophageal reflux disease without esophagitis; K44.9 Diaphragmatic hernia without obstruction or gangrene; Z79.899 Other long term (current) drug therapy; Z88.1 Allergy status to other antibiotic agents
CPT/HCPCS: 36415; 71045; 80053; 80061; 82272; 82607; 82728; 82746; 83540-TC; 83550-TC; 83605; 84443-TC; 84484; 85007; 85025; 85027; 86870; 86886; 86900; 86901; 86905; 86920; 87040-TC; 93005; 93306; 99285; C9113; G0378; J0696; J1200; J1885; J1956; J2916; J7030; J7050; P9021

== ENCOUNTER 2019-06-19 05:13 | Inpatient (IN) | payer BC, MEDICAID, SELFPAY ==
[~2019-06-19] VITALS: Ht 154.9 cm; Wt 68.9 kg
[~2019-06-19 05:13] MED LIST changes: +ALBU8.5H8 INH; +AZIT250T PO; +FAMO40TA71 PO; +FER300L PO; -LACT1CAP57 PO; -LEVAQUIN PO; -MULT-1089 PO; +PEDI1TAB28 PO; -PRO40 PO
[2019-06-19 05:17] VITALS: BP_SYST 125
[2019-06-19] MEDS ORDERED: FLUTICASONE PROPIONATE 50 mCg/SPRAY 16 GM NS ONE ×2 (06:00→06:30)
[2019-06-19] MEDS ORDERED: fentaNYL CITRATE/PF 100 MCG/2 ML AMP IVP ONE (06:00)
[2019-06-19] MEDS ORDERED: PIPERACILLIN/TAZO 3.375 GM in NS 50 ML IV ONE (06:00)
[2019-06-19] MEDS ORDERED: PIPERACILLIN/TAZOBACTAM 3.375 GM/VIAL (ZOSYN) IV ONE (06:18)
[2019-06-19 06:29] LABS: BILIRUBIN,URINE NEGATIVE (NEGATIVE); CLARITY/URINE CLEAR (CLEAR); COLOR,URINE YELLOW (YELLOW); GLUCOSE,URINE NEGATIVE (NEGATIVE); KETONES,URINE 1+ (NEGATIVE); LEUKOCYTE ESTERASE ,URINE NEGATIVE (NEGATIVE); NITRITE, URINE NEGATIVE (NEGATIVE); PH,URINE >=9.0 (5.0-8.0); PROTEIN URINE TRACE (NEGATIVE); UROBILINOGEN,URINE 0.2 (0.2-1.0)
[2019-06-19 06:30] LABS: BLOOD, URINE TRACE (NEGATIVE)
[2019-06-19] MEDS ORDERED: NACL 0.9% 1,000 ML IV ONE (06:30)
[2019-06-19] MEDS ORDERED: TYC3 PO (06:39)
[2019-06-19 06:40] LABS: WBC,URINE 0-3 /HPF (0-3)
[2019-06-19 06:41] LABS: BACTERIA,URINE None Seen /HPF (None Seen); CALCIUM OXALATE CRYSTALS,UR None Seen /HPF (None Seen); CALCIUM PHOSPHATE CRYSTALS,UR None Seen /HPF (None Seen); COARSE GRANULAR CASTS,URINE None Seen /LPF (None Seen); FINE GRANULAR CASTS,URINE None Seen /LPF (None Seen); HYALINE CASTS, URINE None Seen /LPF (None Seen); OTHER CRYSTALS,URINE None Seen /HPF (None Seen); TRICHOMONAS,URINE None Seen /HPF (None Seen); TRIPLE PHOSPHATE CRYSTAL,UR None Seen /HPF (None Seen); URIC ACID CRYSTALS,URINE None Seen /HPF (None Seen); URINE AMORPHOUS PHOSPHATES None Seen /HPF (None Seen); URINE AMORPHOUS URATE None Seen /HPF (None Seen); WAXY CASTS,URINE None Seen /LPF (None Seen); YEAST,URINE None Seen /HPF (None Seen)
[2019-06-19 06:42] LABS: MUCUS,URINE 1+ /LPF (None Seen)
[2019-06-19] MEDS ORDERED: KETAMINE 30 MG/3 ML SYRINGE IVP ONE (07:00)
[2019-06-19 07:05] LABS: HEMATOCRIT 40.8 % (36-48); MEAN CORPUSCULAR HEMOGLOBIN 27 pg (27-31); MEAN CORPUSCULAR VOLUME 85 fL (79.0-98.0); RED BLOOD CELL COUNT(AUTO) 4.82 MIL/uL (4.2-6.2)
[2019-06-19 07:06] LABS: BASOPHILS # (AUTO) 0.1 K/uL (0.0-0.2); BASOPHILS % (AUTO) 0.5 % (0.0-2.0); LYMPHOCYTES # (AUTO) 0.7 K/uL (1.0-5.5); LYMPHOCYTES % (AUTO) 3.2 % (20.5-51.5); MEAN CORPUSCULAR HGB CONC 32 % (32-36); MONOCYTES # (AUTO) 0.6 K/uL (0.0-1.0); NEUTROPHILS # (AUTO) 19.4 K/uL (1.8-7.7); NEUTROPHILS % (AUTO) 93.3 % (40.0-70.0); PLATELET COUNT (AUTO) 275 K/uL (130-430); RED CELL DISTRIBUTION WIDTH 14.7 % (9.0-15.0)
[2019-06-19 07:20] LABS: WHITE BLOOD COUNT (AUTO) 20.8 K/uL (4.8-10.8)
[2019-06-19 07:21] LABS: INR 1.1 (0.8-1.2); PROTHROMBIN TIME 11.1 SECS (9.5-12.5)
[2019-06-19 07:28] LABS: ALBUMIN 3.8 g/dL (3.4-4.8); CALCIUM 8.6 mg/dL (8.4-11.0); POTASSIUM 3.8 mmol/L (3.5-5.1); TOTAL BILIRUBIN 0.4 mg/dL (0.0-1.0)
[2019-06-19 07:29] LABS: CREATININE 0.97 mg/dL (0.55-1.30)
[2019-06-19] MEDS ORDERED: ACETAMINOPHEN 500 MG TABLET PO ONE (07:30)
[2019-06-19 07:45] LABS: C-REACTIVE PROTEIN QUANT 25.7 mg/dL (0-0.5)
[2019-06-19 08:00] LABS: ERYTHROCYTE SEDIMENTATION RATE 14 MM/HR (0-20)
[2019-06-19 10:52] VITALS: BP_SYST 153
[2019-06-19 12:00] VITALS: BP_SYST 120
[2019-06-19] MEDS ORDERED: PIPERACILLIN/TAZO 3.375/DEX-IS 50 ML IV ONE (12:00)
[2019-06-19] MEDS: NACL 0.9% 1,000 ML IV SCH (12:59)
[2019-06-19] MEDS: KETOROLAC TROMETHAMINE 30 MG VIAL IVP PRN ×2 (13:00→20:20)
[2019-06-19] MEDS: ACETAMINOPHEN 325 MG TABLET PO PRN (14:00)
[2019-06-19] MEDS: VANCOMYCIN HCL 750 MG in NS 250 ML IV SCH (15:03)
[2019-06-19 16:00] VITALS: BP_SYST 110
[2019-06-19] MEDS: PIPERACILLIN/TAZO 3.375/DEX-IS 50 ML IV SCH (18:19)
[2019-06-19] MEDS: HYDROcodone/ACETAMIN 5-325 MG TAB (NORCO/ VICODIN) PO PRN (18:24)
[2019-06-19 20:48] VITALS: BP_SYST 115
[2019-06-20 00:36] VITALS: BP_SYST 120
[2019-06-20] MEDS: PIPERACILLIN/TAZO 3.375/DEX-IS 50 ML IV SCH ×4 (00:37→18:01)
[2019-06-20] MEDS: NACL 0.9% 1,000 ML IV SCH ×3 (00:37→15:00)
[2019-06-20] MEDS: HYDROcodone/ACETAMIN 5-325 MG TAB (NORCO/ VICODIN) PO PRN ×4 (00:38→18:45)
[2019-06-20] MEDS: VANCOMYCIN HCL 750 MG in NS 250 ML IV SCH ×2 (02:30→14:45)
[2019-06-20] MEDS: KETOROLAC TROMETHAMINE 30 MG VIAL IVP PRN ×4 (02:30→22:45)
[2019-06-20 07:05] LABS: BASOPHILS # (AUTO) 0.1 K/uL (0.0-0.2); BASOPHILS % (AUTO) 0.4 % (0.0-2.0); EOSINOPHILS % (AUTO) 0.2 % (0.0-4.0); HEMATOCRIT 35.3 % (36-48); HEMOGLOBIN 11.2 g/dL (12.0-16.0); LYMPHOCYTES % (AUTO) 12.2 % (20.5-51.5); MEAN CORPUSCULAR HEMOGLOBIN 27 pg (27-31); MEAN CORPUSCULAR HGB CONC 32 % (32-36); MEAN CORPUSCULAR VOLUME 85 fL (79.0-98.0); MONOCYTES # (AUTO) 1.1 K/uL (0.0-1.0); NEUTROPHILS # (AUTO) 12.9 K/uL (1.8-7.7); NEUTROPHILS % (AUTO) 80.2 % (40.0-70.0); PLATELET COUNT (AUTO) 212 K/uL (130-430); RED BLOOD CELL COUNT(AUTO) 4.17 MIL/uL (4.2-6.2); WHITE BLOOD COUNT (AUTO) 16.1 K/uL (4.8-10.8)
[2019-06-20 07:20] LABS: ALBUMIN 2.9 g/dL (3.4-4.8); CALCIUM 8.4 mg/dL (8.4-11.0); CREATININE 0.8 mg/dL (0.55-1.30); POTASSIUM 3.6 mmol/L (3.5-5.1); TOTAL BILIRUBIN 0.2 mg/dL (0.0-1.0)
[2019-06-20 08:00] VITALS: BP_SYST 119
[2019-06-20 12:00] VITALS: BP_SYST 130
[2019-06-20 16:00] VITALS: BP_SYST 125
[2019-06-20 20:00] VITALS: BP_SYST 135
[2019-06-21] VITALS: BP_SYST 104
[2019-06-21] MEDS: ACETAMINOPHEN 325 MG TABLET PO PRN (01:19)
[2019-06-21] MEDS: PIPERACILLIN/TAZO 3.375/DEX-IS 50 ML IV SCH ×3 (01:19→11:48)
[2019-06-21] MEDS: VANCOMYCIN HCL 750 MG in NS 250 ML IV SCH ×2 (02:00→15:33)
[2019-06-21] MEDS: NACL 0.9% 1,000 ML IV SCH ×3 (04:15→21:34)
[2019-06-21] MEDS ORDERED: OXYCODONE/ACETAMINOPHEN *10*mg/325 mg TABLET PO ONE (05:00)
[2019-06-21] MEDS: KETOROLAC TROMETHAMINE 30 MG VIAL IVP PRN ×3 (06:25→17:58)
[2019-06-21] MEDS: LIDOCAINE PATCH 5% 1 EA TP SCH (09:28)
[2019-06-21 09:40] VITALS: BP_SYST 124
[2019-06-21 13:10] VITALS: BP_SYST 133
[2019-06-21 14:38] LABS: THYROID STIMULATING HORMONE 0.88 uIu/mL (0.34-4.82); VANCOMYCIN,TROUGH 1.2 ug/mL (5.0-10.0)
[2019-06-21] MEDS ORDERED: POLYETHYLENE GLYCOL 3350, 17 GM/ POWD.PACK PO ONE (15:00)
[2019-06-21] MEDS: OXYCODONE/ACETAMINOPHEN *10*mg/325 mg TABLET PO PRN ×2 (15:31→21:25)
[2019-06-21 17:54] VITALS: BP_SYST 134
[2019-06-21] MEDS: CEFEPIME 2 GM in D5W 100 ML IV SCH (21:39)
[2019-06-22] MEDS: KETOROLAC TROMETHAMINE 30 MG VIAL IVP PRN ×2 (00:07→06:00)
[2019-06-22 00:27] VITALS: BP_SYST 108
[2019-06-22] MEDS: VANCOMYCIN HCL 750 MG in NS 250 ML IV SCH (02:06)
[2019-06-22] MEDS: OXYCODONE/ACETAMINOPHEN *10*mg/325 mg TABLET PO PRN (03:19)
[2019-06-22 06:24] LABS: ALBUMIN 2.5 g/dL (3.4-4.8); CALCIUM 7.9 mg/dL (8.4-11.0); CREATININE 0.75 mg/dL (0.55-1.30); POTASSIUM 3.5 mmol/L (3.5-5.1); TOTAL BILIRUBIN 0.3 mg/dL (0.0-1.0)
[2019-06-22 06:37] LABS: BASOPHILS % (AUTO) 0.3 % (0.0-2.0); EOSINOPHILS # (AUTO) 0.2 K/uL (0.0-0.4); EOSINOPHILS % (AUTO) 1.2 % (0.0-4.0); HEMATOCRIT 30.2 % (36-48); HEMOGLOBIN 9.7 g/dL (12.0-16.0); LYMPHOCYTES # (AUTO) 1.8 K/uL (1.0-5.5); LYMPHOCYTES % (AUTO) 13.2 % (20.5-51.5); MEAN CORPUSCULAR HEMOGLOBIN 27 pg (27-31); MEAN CORPUSCULAR HGB CONC 32 % (32-36); MEAN CORPUSCULAR VOLUME 84 fL (79.0-98.0); MONOCYTES # (AUTO) 1.2 K/uL (0.0-1.0); MONOCYTES % (AUTO) 8.9 % (1.7-9.3); NEUTROPHILS # (AUTO) 10.5 K/uL (1.8-7.7); NEUTROPHILS % (AUTO) 76.4 % (40.0-70.0); PLATELET COUNT (AUTO) 220 K/uL (130-430); RED BLOOD CELL COUNT(AUTO) 3.59 MIL/uL (4.2-6.2); RED CELL DISTRIBUTION WIDTH 14.9 % (9.0-15.0); WHITE BLOOD COUNT (AUTO) 13.8 K/uL (4.8-10.8)
[2019-06-22 06:43] LABS: C-REACTIVE PROTEIN QUANT 26.4 mg/dL (0-0.5)
[2019-06-22 07:35] LABS: ERYTHROCYTE SEDIMENTATION RATE 56 MM/HR (0-20)
[2019-06-22] MEDS: ACETAMINOPHEN 325 MG TABLET PO PRN (07:47)
[2019-06-22 08:05] VITALS: BP_SYST 122
[2019-06-22] MEDS ORDERED: POLYETHYLENE GLYCOL 3350, 17 GM/ POWD.PACK PO SCH (09:00)
[2019-06-22] MEDS: LIDOCAINE PATCH 5% 1 EA TP SCH (09:19)
[2019-06-22] MEDS: NACL 0.9% 1,000 ML IV SCH (09:20)
[2019-06-22] MEDS: CEFEPIME 2 GM in D5W 100 ML IV SCH (09:20)
[2019-06-22] MEDS ORDERED: LEVO500T89 PO (09:39)
[2019-06-22 10:24] VITALS: BP_SYST 122
[2019-06-22] MEDS ORDERED: GADOBENATE DIMEGLUMINE 529 MG/ML, 15 ML VIAL IV ONE (10:30)
[2019-06-22 12:35] VITALS: BP_SYST 124
== END 2019-06-22 12:58 | disposition home or self-care (01) | DRG 872 ==
LOC: SED 05:13 → EEVIPCON 09:52 → SMU 09:52 → STU 21:18
PROVIDERS: ADMIT Internal Medicine Hospice and Palliative Medicine; ATTEND Internal Medicine Hospice and Palliative Medicine
DX: A41.9 Sepsis, unspecified organism (principal); G83.9 Paralytic syndrome, unspecified; G89.4 Chronic pain syndrome; N32.81 Overactive bladder; R65.20 Severe sepsis without septic shock; M46.86 Other specified inflammatory spondylopathies, lumbar region; M54.16 Radiculopathy, lumbar region; Z20.828 Contact with and (suspected) exposure to other viral communicable diseases; K58.9 Irritable bowel syndrome, unspecified; M54.30 Sciatica, unspecified side; D64.9 Anemia, unspecified; M47.816 Spondylosis without myelopathy or radiculopathy, lumbar region; K21.9 Gastro-esophageal reflux disease without esophagitis; Z88.5 Allergy status to narcotic agent; Z88.1 Allergy status to other antibiotic agents; Z79.899 Other long term (current) drug therapy
CPT/HCPCS: 36415; 70551; 71045; 72131; 72148; 72170-TC; 73502; 73552; 80053; 80202-TC; 81000-TC; 82550-TC; 82607; 83605; 83690-TC; 84443-TC; 85025; 85610-TC; 85651-TC; 85730-TC; 86140; 86870; 86886; 86900; 86901; 87040-TC; 87086; 93005; 93306; 93971; 96365; 96375; 97110-GP; 97116-GP; 97530-GP; 99285; A9577; G0378; J0692; J1885; J2543; J3010; J7030; J7050; J7060; U0002

== ENCOUNTER 2019-06-23 03:23 | Emergency (ER) | payer BC, MEDICAID ==
[~2019-06-23] VITALS: Ht 154.9 cm; Wt 68.5 kg
[~2019-06-23 03:23] MED LIST changes: -AZIT250T PO; +LEVO500T89 PO; -PEDI1TAB28 PO; +TYC3 PO
[2019-06-23 03:30] VITALS: BP_SYST 143
--- NOTE | 2019-06-23 03:33 | NUR ---
Patient to ER bed 2 to gown for evaluation. Side rails up.
--- NOTE | 2019-06-23 03:40 | NUR ---
Pt came to the ED for hx of severe R lower extremit pain which is described as a "numbness." She was recetly discharged yesterday after being admited for sepsis . Pt states that pain got better with Toradol and Percocet. Denies n/v/d or fever. No other complaints/injuries noted. Will cont. to monitor.
--- NOTE | 2019-06-23 03:40 | NUR ---
ER at bedside examining patient.
[2019-06-23] MEDS ORDERED: KETOROLAC TROMETHAMINE 60 MG/2 ML VIAL IM ONE (04:30)
[2019-06-23] MEDS ORDERED: OXYCODONE/ACETAMINOPHEN *10*mg/325 mg TABLET PO ONE (04:30)
[2019-06-23 05:00] VITALS: BP_SYST 123
--- NOTE | 2019-06-23 05:00 | NUR ---
Patient given written and verbal discharge instructions and verbalizes understanding. ER MD discussed with patient the results and treatment provided. Patient in stable condition. ID arm band removed. Rx of Percocet and Motrin given. Patient educated on pain management and to follow up with PMD. Pain Scale 0/10 Opportunity for questions provided and answered. Medication side effect fact sheet provided.
== END 2019-06-23 05:00 | disposition home or self-care (01) ==
LOC: SED 03:23
DX: M54.16 Radiculopathy, lumbar region (principal); K21.9 Gastro-esophageal reflux disease without esophagitis; Z88.1 Allergy status to other antibiotic agents; Z88.6 Allergy status to analgesic agent; Z79.899 Other long term (current) drug therapy
CPT/HCPCS: 93971; 96372; 99284; J1885